=== PATIENT | female | born 1985 | race African-American/Black ===

== ENCOUNTER 2020-02-05 14:22 | Emergency (ER) | payer OTHER ==
[2020-02-05 15:07] LABS: Pregnancy Test - Urine (BHCG) Negative (Negative)
[2020-02-05 15:08] LABS: Pregu Control Background? CLEAR/WHITE (CLR/WHITE); Pregu Control Bar Appear? YES (CONTROL BAR)
--- NOTE | 2020-02-05 15:27 | RAD ---
Exam: XR Hand Rt 3 View STANDARD HISTORY: Right hand injury. COMPARISON: None FINDINGS: Subcutaneous soft tissue swelling is seen at the dorsal aspect of the right hand. No acute fracture, dislocation, or other acute osseous abnormality is identified. IMPRESSION: No acute osseous abnormality is identified. Subcutaneous soft tissue swelling.
--- NOTE | 2020-02-05 15:41 | CT ---
CT BRAIN NONCONTRAST: DATE: 02/05/2020 HISTORY: 34-year-old female with posttraumatic headache. FINDINGS: There is no evidence of acute intra-axial or extra-axial hemorrhage. There is no midline shift or any other mass effect. There is no extra-axial fluid collection. There is no evidence of obstructive hydrocephalus. Calvarium is intact. There is a new finding of a right lamina papyracea defect without adjacent medial orbital fat stranding. The visualized portions of the bilateral ethmoid air cells, frontal sinuses, and sphenoid sinus, are clear. IMPRESSION: 1. No acute intracranial findings. 2. Old right medial orbital wall blowout fracture, which occurred sometime after the previous CT of .
--- NOTE | 2020-02-05 15:48 | CT ---
EXAM: CT cervical spine PROVIDED CLINICAL HISTORY: Injury. Patient complains of pain in back of head and involving her neck. TECHNIQUE: Contiguous axial CT images are obtained through the cervical spine from the skull base to the T1 leve l. Sagittal and coronal reformatted images are provided. COMPARISON: None FINDINGS: No evidence for fracture or traumatic subluxation. Mild degenerative changes are seen at the C5-6 and C6-7 levels with mild osteophyte formation and loss of intervertebral disc height. No prevertebral soft tissue swelling apparent. Minimal peripheral blebs are seen at each lung apex. Visualized thyroid gland demonstrates a grossly normal nonenhanced CT appearance. IMPRESSION: No evidence for fracture or traumatic subluxation.
== END 2020-02-05 16:03 | disposition home or self-care (01) ==
LOC: NAV ERS 14:22
DX: S10.93XA Contusion of unspecified part of neck, initial encounter (principal); S60.221A Contusion of right hand, initial encounter; S00.03XA Contusion of scalp, initial encounter; F41.9 Anxiety disorder, unspecified; F32.9 Major depressive disorder, single episode, unspecified; F17.210 Nicotine dependence, cigarettes, uncomplicated; Y04.0XXA Assault by unarmed brawl or fight, initial encounter
CPT/HCPCS: 70450; 72125; 81025

== ENCOUNTER 2021-12-28 09:43 | Emergency (ER) | payer BC, OTHER, SELFPAY ==
[2021-12-28 10:18] LABS: #Eosinphils 0.2 thou/uL (0.0-0.7); #Monocytes 0.4 thou/uL (0.11-0.59); #Neutrophils 2.8 thou/uL (1.40-6.50); %Basophils 0.8 % (0.0-1.0); %Eosinophils 3.2 % (0.0-10.0); %Lymphocytes 36.7 % (21.0-51.0); %Neutrophils 51.3 % (42.0-75.0); Hemoglobin 11.9 g/dL (12.0-16.0); Mean Corpuscular HGB CONC 30.7 g/dL (32.0-36.0); Mean Corpuscular Hemoglobin 28.4 pg (27.0-31.0); Mean Corpuscular Volume 92.7 fL (78.0-98.0); Mean Platelet Volume 10.5 fL (7.4-10.4); Platelet Count 196 thou/uL (130-400); RBC Distribution Width 12.7 % (11.5-14.5); Red Blood Cell (RBC) Count 4.18 mill/uL (4.20-5.40); White Blood Cell (WBC) Count 5.4 thou/uL (4.8-10.8)
[2021-12-28 10:38] LABS: ALT (SGPT) 13 U/L (8-55); AST (SGOT) 17 U/L (5-34); Albumin 4.1 g/dL (3.5-5.0); Alkaline Phosphatase 45 U/L (40-110); Anion Gap 15 mmol/L (10-20); BUN (Urea Nitrogen) 14 mg/dL (7.0-18.7); Bilirubin, Total 0.6 mg/dL (0.2-1.2); Calc. Creatinine Clearance 0 mL/min (70-130); Calcium 9.3 mg/dL (7.8-10.44); Carbon Dioxide 25 mmol/L (22-29); Chloride 106 mmol/L (98-107); Globulin 2.7 g/dL (2.4-3.5); Glucose 101 mg/dL (70-105); Potassium 3.6 mmol/L (3.5-5.1); Protein, Total 6.8 g/dL (6.0-8.3); Sodium 142 mmol/L (136-145)
[2021-12-28] MEDS ORDERED: Ibuprofen 200 MG TAB ONE (11:26)
== END 2021-12-28 11:37 | disposition short-term general hospital (02) ==
LOC: NAV ERS 09:43
DX: M79.662 Pain in left lower leg (principal); M79.672 Pain in left foot; M25.572 Pain in left ankle and joints of left foot; R79.1 Abnormal coagulation profile; F17.200 Nicotine dependence, unspecified, uncomplicated
CPT/HCPCS: 80053; 85025; 85379

== ENCOUNTER 2022-11-06 17:12 | Emergency (ER) | payer BC | END 2022-11-06 19:40 | disposition short-term general hospital (02) | LOC: NAV ERS 17:12 | DX: M79.662 Pain in left lower leg (principal); F17.200 Nicotine dependence, unspecified, uncomplicated; Z86.718 Personal history of other venous thrombosis and embolism | CPT/HCPCS: 36415; 85379; 99284 ==

== ENCOUNTER 2023-01-14 13:20 | Emergency (ER) | payer BC ==
[2023-01-14] MEDS ORDERED: Acetaminophen 500 MG TAB ONE (14:40)
== END 2023-01-14 14:55 | disposition short-term general hospital (02) ==
LOC: NAV ERS 13:20
DX: M79.605 Pain in left leg (principal)
CPT/HCPCS: 36415; 85379; 99284

== ENCOUNTER 2023-06-27 10:32 | Emergency (ER) | payer BC ==
[~2023-06-27 10:32] MED LIST: Iopamidol 370 76% 100 ML VIAL ONE
[2023-06-27 11:13] LABS: #Basophils 0.1 thou/uL (0.0-0.2); #Eosinphils 0.1 thou/uL (0.0-0.7); #Lymphocytes 1.9 thou/uL (1.20-3.40); #Monocytes 0.4 thou/uL (0.11-0.59); #Neutrophils 1.7 thou/uL (1.40-6.50); %Basophils 1.6 % (0.0-1.0); %Eosinophils 3.3 % (0.0-10.0); %Lymphocytes 46.1 % (21.0-51.0); %Monocytes 9.3 % (0.0-10.0); %Neutrophils 39.8 % (42.0-75.0); Hematocrit 38.1 % (36.0-47.0); Hemoglobin 12.7 g/dL (12.0-16.0); Mean Corpuscular HGB CONC 33.4 g/dL (32.0-36.0); Mean Corpuscular Hemoglobin 30.2 pg (27.0-31.0); Mean Corpuscular Volume 90.2 fl (78.0-98.0); Mean Platelet Volume 9.6 fL (7.4-10.4); Platelet Count 230 10x3/uL (130-400); RBC Distribution Width 12.6 % (11.5-14.5); Red Blood Cell (RBC) Count 4.22 mill/uL (4.20-5.40); White Blood Cell (WBC) Count 4.2 10x3/uL (4.8-10.8)
[2023-06-27 11:23] LABS: BHCG - Serum Negative (NEGATIVE); Pregs Control Bar Appear? YES (CONTROL BAR)
[2023-06-27 11:24] LABS: ALT (SGPT) 15 U/L (8-55); AST (SGOT) 17 U/L (5-34); Albumin 4.4 g/dL (3.5-5.0); Alkaline Phosphatase 47 U/L (40-110); Anion Gap 14 mmol/L (10-20); BUN (Urea Nitrogen) 13 mg/dL (7.0-18.7); Bilirubin, Total 0.5 mg/dL (0.2-1.2); Calc. Creatinine Clearance 0 mL/min (70-130); Calcium 9.3 mg/dL (7.8-10.44); Carbon Dioxide 24 mmol/L (22-29); Chloride 105 mmol/L (98-107); Estimated GFR 89; Globulin 2.4 g/dL (2.4-3.5); Glucose 82 mg/dL (70-105); Protein, Total 6.8 g/dL (6.0-8.3); Sodium 139 mmol/L (136-145)
[2023-06-27 11:25] LABS: Troponin I Less than 0.010 ng/mL (< 0.028)
[2023-06-27] MEDS ORDERED: Sodium Chloride 0.9% 1,000 ML ONE (11:30)
== END 2023-06-27 14:17 | disposition short-term general hospital (02) ==
LOC: NAV ERS 10:32
DX: I27.82 Chronic pulmonary embolism (principal); M79.601 Pain in right arm; R42 Dizziness and giddiness; Z79.01 Long term (current) use of anticoagulants
CPT/HCPCS: 71275; 80053; 83880; 84484; 84703; 85025; 85379; 93005; 94760; 96360; J7050; Q9967

== ENCOUNTER 2023-08-11 12:39 | Emergency (ER) | payer BC, SELFPAY ==
[2023-08-11 13:41] LABS: #Eosinphils 0.1 thou/uL (0.0-0.7); #Lymphocytes 2.2 thou/uL (1.20-3.40); #Monocytes 0.3 thou/uL (0.11-0.59); #Neutrophils 1.8 thou/uL (1.40-6.50); %Basophils 1.1 % (0.0-1.0); %Eosinophils 1.4 % (0.0-10.0); %Lymphocytes 49.5 % (21.0-51.0); %Monocytes 7.1 % (0.0-10.0); Hematocrit 39.5 % (36.0-47.0); Hemoglobin 12.8 g/dL (12.0-16.0); Mean Corpuscular HGB CONC 32.4 g/dL (32.0-36.0); Mean Corpuscular Hemoglobin 29.2 pg (27.0-31.0); Mean Corpuscular Volume 90.1 fl (78.0-98.0); Mean Platelet Volume 10.3 fL (7.4-10.4); Platelet Count 248 10x3/uL (130-400); Red Blood Cell (RBC) Count 4.38 mill/uL (4.20-5.40); White Blood Cell (WBC) Count 4.4 10x3/uL (4.8-10.8)
[2023-08-11 13:49] LABS: ALT (SGPT) 16 U/L (8-55); AST (SGOT) 19 U/L (5-34); Albumin 4.7 g/dL (3.5-5.0); Alkaline Phosphatase 44 U/L (40-110); Anion Gap 14 mmol/L (10-20); BUN (Urea Nitrogen) 11 mg/dL (7.0-18.7); Bilirubin, Total 0.4 mg/dL (0.2-1.2); Calc. Creatinine Clearance 0 mL/min (70-130); Calcium 9.7 mg/dL (7.8-10.44); Carbon Dioxide 25 mmol/L (22-29); Chloride 103 mmol/L (98-107); Estimated GFR 87; Globulin 3.1 g/dL (2.4-3.5); Glucose 94 mg/dL (70-105); Potassium 3.6 mmol/L (3.5-5.1); Protein, Total 7.8 g/dL (6.0-8.3); Sodium 138 mmol/L (136-145)
== END 2023-08-11 14:34 | disposition home or self-care (01) ==
LOC: NAV ERS 12:39
DX: I26.99 Other pulmonary embolism without acute cor pulmonale (principal)
CPT/HCPCS: 71045; 80053; 84484; 85025; 93005; 96372; J1650

== ENCOUNTER 2023-09-26 16:32 | Emergency (ER) | payer BC, SELFPAY ==
[2023-09-26] MEDS ORDERED: Ketorolac Tromethamine 30 MG (1 mL) VIAL ONE (16:54)
[2023-09-26 17:14] LABS: #Basophils 0.1 thou/uL (0.0-0.2); #Eosinphils 0.1 thou/uL (0.0-0.7); #Lymphocytes 2.2 thou/uL (1.20-3.40); #Monocytes 0.5 thou/uL (0.11-0.59); #Neutrophils 2.9 thou/uL (1.40-6.50); %Eosinophils 2.5 % (0.0-10.0); %Lymphocytes 38.7 % (21.0-51.0); %Monocytes 7.9 % (0.0-10.0); %Neutrophils 49.9 % (42.0-75.0); Hematocrit 34.7 % (36.0-47.0); Hemoglobin 11.8 g/dL (12.0-16.0); Mean Corpuscular Hemoglobin 30.3 pg (27.0-31.0); Mean Corpuscular Volume 89.1 fl (78.0-98.0); Mean Platelet Volume 9.6 fL (7.4-10.4); Platelet Count 225 10x3/uL (130-400); RBC Distribution Width 11.2 % (11.5-14.5); White Blood Cell (WBC) Count 5.8 10x3/uL (4.8-10.8)
[2023-09-26 17:28] LABS: Troponin I Less than 0.010 ng/mL (< 0.028)
[2023-09-26 17:29] LABS: ALT (SGPT) 19 U/L (8-55); AST (SGOT) 18 U/L (5-34); Albumin 4.1 g/dL (3.5-5.0); Alkaline Phosphatase 55 U/L (40-110); Anion Gap 13 mmol/L (10-20); BUN (Urea Nitrogen) 10 mg/dL (7.0-18.7); Bilirubin, Total 0.2 mg/dL (0.2-1.2); Calc. Creatinine Clearance 0 mL/min (70-130); Calcium 8.6 mg/dL (7.8-10.44); Carbon Dioxide 25 mmol/L (22-29); Chloride 105 mmol/L (98-107); Estimated GFR 100; Globulin 2.4 g/dL (2.4-3.5); Glucose 88 mg/dL (70-105); Lipase 17 U/L (8-78); Magnesium 2.2 mg/dL (1.6-2.6); Protein, Total 6.5 g/dL (6.0-8.3); Sodium 139 mmol/L (136-145)
[2023-09-26] MEDS ORDERED: cefTRIAXone (ROCEPHIN) 1 GM VIAL ONE (18:32)
[2023-09-26] MEDS ORDERED: Sodium Chloride 0.9% 100 ML ONE (18:32)
== END 2023-09-26 17:03 | disposition home or self-care (01) ==
LOC: NAV ERS 16:32
DX: J18.9 Pneumonia, unspecified organism (principal); Z20.822 Contact with and (suspected) exposure to COVID-19
CPT/HCPCS: 71045; 71275; 80053; 83690; 83735; 84484; 85025; 85379; 87635; 87804; 93005; 96365; 96375; J0696; J1885; J3490

== ENCOUNTER 2023-11-25 12:38 | Emergency (ER) | payer BC ==
[2023-11-25] MEDS ORDERED: Acetaminophen 500 MG TAB ONE (13:13)
[2023-11-25] MEDS ORDERED: Sodium Chloride 0.9% 1,000 ML ONE (13:15)
[2023-11-25 13:23] LABS: #Eosinphils 0.1 thou/uL (0.0-0.7); #Lymphocytes 1.9 thou/uL (1.20-3.40); #Monocytes 0.3 thou/uL (0.11-0.59); %Basophils 0.8 % (0.0-1.0); %Lymphocytes 44.2 % (21.0-51.0); %Monocytes 6.8 % (0.0-10.0); %Neutrophils 46.2 % (42.0-75.0); Hematocrit 34.3 % (36.0-47.0); Hemoglobin 11.6 g/dL (12.0-16.0); Mean Corpuscular HGB CONC 33.9 g/dL (32.0-36.0); Mean Corpuscular Hemoglobin 29.6 pg (27.0-31.0); Mean Corpuscular Volume 87.3 fl (78.0-98.0); Mean Platelet Volume 10.6 fL (7.4-10.4); Platelet Count 204 10x3/uL (130-400); RBC Distribution Width 11.7 % (11.5-14.5); Red Blood Cell (RBC) Count 3.92 mill/uL (4.20-5.40); White Blood Cell (WBC) Count 4.4 10x3/uL (4.8-10.8)
[2023-11-25 13:56] LABS: Pregnancy Test - Urine (BHCG) Negative (Negative); Pregu Control Background? CLEAR/WHITE (CLR/WHITE); Pregu Control Bar Appear? YES (CONTROL BAR)
[2023-11-25 13:57] LABS: Specific Gravity 1.015 (1.002-1.036)
[2023-11-25 13:57] LABS: Clarity Clear (Clear)
[2023-11-25 13:58] LABS: Bilirubin Negative (Negative); Blood, Urine Negative (Negative); Glucose, Urine (Dipstick) Negative (Negative); Ketone, Urine Negative (Negative); Leukocyte Negative (Negative); Nitrite Negative (Negative); Protein, Urine (Dipstick) Negative (Neg-Trace); Specific Gravity, Urine 1.015 (1.005-1.030); Urobilinogen 0.2 mg/dL (Less than 2); pH, Urine 7.5 (5.0-9.0)
[2023-11-25 14:21] LABS: Bacteria/HPF None Seen HPF (None Seen); CAUTI Indications for Culture Pelvic or flank pain; RBC/HPF None Seen HPF (0-3); WBC/HPF None Seen HPF (0-3)
[2023-11-25 14:23] LABS: Urine Culture Reflex No No
[2023-11-25 14:23] LABS: Carbon Dioxide 26 mmol/L (22-29); Chloride 104 mmol/L (98-107); Potassium 3.2 mmol/L (3.5-5.1); Sodium 139 mmol/L (136-145)
[2023-11-25 14:24] LABS: Albumin 4.3 g/dL (3.5-5.0); Anion Gap 12 mmol/L (10-20); BUN (Urea Nitrogen) 6 mg/dL (7.0-18.7); Bilirubin, Total 0.3 mg/dL (0.2-1.2); Calc. Creatinine Clearance 0 mL/min (70-130); Calcium 9.1 mg/dL (7.6-10.4); Estimated GFR 102; Globulin 2.7 g/dL (2.4-3.5); Glucose 92 mg/dL (70-105)
[2023-11-25 14:25] LABS: ALT (SGPT) 12 U/L (8-55); AST (SGOT) 16 U/L (5-34); Alkaline Phosphatase 45 U/L (40-110); Lipase 15 U/L (8-78); Troponin I Less than 0.010 ng/mL (< 0.028)
== END 2023-11-25 15:29 | disposition home or self-care (01) ==
LOC: NAV ERS 12:38
DX: R42 Dizziness and giddiness (principal); R10.30 Lower abdominal pain, unspecified; L72.0 Epidermal cyst; Z79.01 Long term (current) use of anticoagulants; Z86.711 Personal history of pulmonary embolism; Z86.718 Personal history of other venous thrombosis and embolism
CPT/HCPCS: 71045; 80053; 81001; 81025; 83690; 83735; 84484; 85025; 93005; 94760; J7050

== ENCOUNTER 2024-01-20 14:10 | Emergency (ER) | payer SELFPAY ==
[2024-01-20 14:47] LABS: Bilirubin Negative (Negative); Blood, Urine Trace (Negative); Clarity Clear (Clear); Glucose, Urine (Dipstick) Negative (Negative); Ketone, Urine Negative (Negative); Leukocyte Negative (Negative); Nitrite Negative (Negative); Protein, Urine (Dipstick) Negative (Neg-Trace)
[2024-01-20 14:48] LABS: Pregnancy Test - Urine (BHCG) Negative (Negative)
[2024-01-20 14:49] LABS: Pregu Control Background? CLEAR/WHITE (CLR/WHITE); Pregu Control Bar Appear? YES (CONTROL BAR)
[2024-01-21 23:22] LABS: Chlam.trachomatis by PCR,Urine Not Detected (NotDetected); GC N.gonorrhoeae PCR,UrineVOID Not Detected (NotDetected)
== END 2024-01-20 15:20 | disposition home or self-care (01) ==
LOC: NAV ERS 14:10
DX: R10.2 Pelvic and perineal pain (principal)
CPT/HCPCS: 81001; 81025; 87491; 87591; 99284

== ENCOUNTER 2024-08-16 21:39 | Emergency (ER) | payer MEDICAID | END 2024-08-16 22:35 | disposition home or self-care (01) | LOC: NAV ERS 21:39 | DX: O98.513 Other viral diseases complicating pregnancy, third trimester (principal); B34.9 Viral infection, unspecified; Z3A.37 37 weeks gestation of pregnancy | CPT/HCPCS: 87428; 99284 ==

== ENCOUNTER 2025-07-21 04:58 | Emergency (ER) | payer OTHER, MEDICAID | END 2025-07-21 06:16 | disposition home or self-care (01) | LOC: NAV ERS 04:58 | DX: J06.9 Acute upper respiratory infection, unspecified (principal) | CPT/HCPCS: 87428; 99283 ==

== ENCOUNTER 2025-08-26 06:14 | Emergency (ER) | payer OTHER | END 2025-08-26 08:04 | disposition home or self-care (01) | LOC: NAV ERS 06:14 | DX: B34.9 Viral infection, unspecified (principal); Z86.711 Personal history of pulmonary embolism; Z86.718 Personal history of other venous thrombosis and embolism; Z87.891 Personal history of nicotine dependence | CPT/HCPCS: 87428; 99283 ==